=== PATIENT | female | born 1985 | race Caucasian/White ===

== ENCOUNTER → 2017-10-08 | Outpatient (CLI) | payer OTHER ==
[~2017-10-08] MED LIST: PRENCAP6 PO; PRENTAB50 PO; Z.0.NO CURRENT MEDS
== END ==
LOC: CLAB 08:44
PROVIDERS: ATTEND Obstetrics & Gynecology
DX: Z34.82 Encounter for supervision of other normal pregnancy, second trimester (principal)
CPT/HCPCS: 82951

== ENCOUNTER 2018-01-02 10:02 | Inpatient (IN) | payer OTHER ==
[2018-01-02] VITALS (17 sets, daily range): BP systolic 91–132; BP diastolic 57–75; PULSE 51–88; RESP 14–22; TEMP 97.5–98.4; O2SAT 96–100
[2018-01-02 11:11] LABS: AUTOMATED NEUTROPHIL # 3.1 TH/MM3 (1.8-7.7); BASOPHIL % 0.4 % (0.0-2.0); EOSINOPHIL % 0.2 % (0.0-4.0); HEMATOCRIT 31.1 % (35.0-46.0); HEMOGLOBIN 10.7 GM/DL (11.6-15.3); LYMPH % 28.7 % (9.0-44.0); LYMPHOCYTE # 1.4 TH/MM3 (1.0-4.8); MEAN CELL VOLUME 90.3 FL (80.0-100.0); MEAN CORPUSCULAR HGB CONC 34.3 % (32.0-36.0); MEAN PLATELET VOLUME 9.7 FL (7.0-11.0); MONO % 6.6 % (0.0-8.0); MONOCYTE # 0.3 TH/MM3 (0-0.9); NEUT % 64.1 % (16.0-70.0); PLATELET COUNT 214 TH/MM3 (150-450); RED BLOOD COUNT 3.45 MIL/MM3 (4.00-5.30); WHITE BLOOD COUNT 4.8 TH/MM3 (4.0-11.0)
[2018-01-02 11:14] LABS: BACTERIA, URINE RARE /hpf; BILIRUBIN, URINE NEG (NEG); BLOOD, URINE NEG (NEG); GLUCOSE,URINE NEG (NEG); KETONE, URINE NEG (NEG); NITRITE,URINE NEG (NEG); SQUAMOUS EPITHELIAL CELL URINE 19 /hpf (0-5); URINE COLOR YELLOW (YELLW/STRAW); URINE LEUKOCYTE ESTERASE NEG (NEG)
[2018-01-02] MEDS ORDERED: OXYTOCIN 10 UNIT/ML AMP IV ONE (12:00)
[2018-01-02] MEDS ORDERED: ONDANSETRON HCL 4 MG/2 ML VIAL IV ONE (12:00)
[2018-01-02] MEDS ORDERED: ePHEDrine/NS 25 MG/5 ML SYRINGE IV ONE (12:00)
[2018-01-02] MEDS ORDERED: DEXAMETHASONE SOD PHOS 4 MG/ML VIAL IV ONE (12:00)
[2018-01-02] MEDS ORDERED: ceFAZolin 2 GM PREMIX 50 ML IV SCH (12:00)
[2018-01-02] MEDS ORDERED: ceFAZolin INJ 1,000 MG VIAL IV ONE (12:00)
[2018-01-02] MEDS ORDERED: CITRIC ACID-SODIUM CITRATE LIQ 30 ML UDC PO SCH (12:00)
[2018-01-02] MEDS ORDERED: LACTATED RINGER'S 1000 ML INJ 1,000 ML IV ONE (12:00)
[2018-01-02] MEDS ORDERED: PHENYLEPH/NS 1000 MCG/10 ML SYR IV ONE (12:00)
[2018-01-02] MEDS ORDERED: LACTATED RINGER'S 1000 ML IV ONE (12:00)
[2018-01-02] MEDS ORDERED: ACETAMINOPHEN 1000 MG/100 ML 100 ML IV ONE (12:06)
[2018-01-02] MEDS ORDERED: MORPHINE SULFATE PF 5 MG/10 ML VIAL ONE (12:06)
[2018-01-02] MEDS ORDERED: ONDANSETRON HCL 4 MG/2 ML VIAL IV PUSH PRN (13:30)
[2018-01-02] MEDS ORDERED: OXYTOCIN 30 UNITS-500ML PREMIX 500 ML IV ONE (13:30)
[2018-01-02] MEDS ORDERED: KETOROLAC TROMETHAMINE 60 MG/2 ML (IM) VIAL IM PRN (13:30)
[2018-01-02] MEDS ORDERED: SODIUM CHLORIDE 0.9% FLUSH 10 ML FLUSH IV FLUSH PRN (13:30)
[2018-01-02] MEDS ORDERED: SIMETHICONE 80 MG CHEWABLE TAB PO PRN (13:30)
[2018-01-02] MEDS ORDERED: oxyCODONE/ACETAMINOPHEN 5 MG/325 MG TAB PO PRN (13:30)
[2018-01-02] MEDS: LACTATED RINGER'S 1000 ML INJ 1,000 ML IV SCH ×2 (18:20→22:00)
[2018-01-02] MEDS: SODIUM CHLORIDE 0.9% FLUSH 10 ML FLUSH IV FLUSH SCH (21:00)
[2018-01-02] MEDS ORDERED: OXYTOCIN 30 UNITS-500ML PREMIX 500 ML IV PRN (23:30)
[2018-01-03] VITALS: BP 94/69; PULSE 70; TEMP 97.8; O2SAT 96
[2018-01-03] MEDS ORDERED: AMMONIA AROMATIC INHALANT 0.33 ML ONE (01:55)
[2018-01-03 04:00] VITALS: BP 116/72; PULSE 58; RESP 16; TEMP 97.9; O2SAT 97
[2018-01-03] MEDS: IBUPROFEN 600 MG TAB PO PRN ×3 (05:23→18:00)
[2018-01-03 05:58] LABS: AUTOMATED NEUTROPHIL # 7.3 TH/MM3 (1.8-7.7); BASOPHIL % 0.2 % (0.0-2.0); HEMATOCRIT 29.3 % (35.0-46.0); HEMOGLOBIN 10.2 GM/DL (11.6-15.3); LYMPH % 14.4 % (9.0-44.0); LYMPHOCYTE # 1.3 TH/MM3 (1.0-4.8); MEAN CELL VOLUME 91.5 FL (80.0-100.0); MEAN CORPUSCULAR HEMOGLOBIN 31.8 PG (27.0-34.0); MEAN CORPUSCULAR HGB CONC 34.7 % (32.0-36.0); MONO % 5.9 % (0.0-8.0); MONOCYTE # 0.5 TH/MM3 (0-0.9); NEUT % 79.5 % (16.0-70.0); PLATELET COUNT 166 TH/MM3 (150-450); RED BLOOD COUNT 3.21 MIL/MM3 (4.00-5.30); RED CELL DISTRIBUTION WIDTH 13.2 % (11.6-17.2); WHITE BLOOD COUNT 9.2 TH/MM3 (4.0-11.0)
--- NOTE | 2018-01-03 07:34 | HHI.OB ---
Subjective Post Operative Day: 1 Remarks Pt doing well, good pain control, no n/v, ambulating well Objective Vitals/I&O Vital Signs Date Time Temp Pulse Resp B/P (MAP) Pulse Ox O2 Delivery O2 Flow Rate FiO2 01/03/18 04:00 97.9 58 16 116/72 (87) 97 01/03/18 00:00 70 94/69 (77) 96 01/03/18 00:00 97.8 01/02/18 23:35 17 01/02/18 23:00 18 01/02/18 22:00 18 01/02/18 21:00 97.5 70 18 96 01/02/18 21:00 91/69 (76) 01/02/18 20:00 18 01/02/18 18:28 18 01/02/18 17:08 17 01/02/18 16:00 18 01/02/18 16:00 98.4 56 16 119/72 (88) 01/02/18 15:00 55 132/70 (90) 01/02/18 15:00 17 100 01/02/18 14:45 51 128/75 (92) 01/02/18 14:45 14 100 01/02/18 14:30 54 17 127/72 (90) 100 01/02/18 14:15 73 16 110/58 (75) 100 01/02/18 14:00 78 18 108/57 (74) 100 01/02/18 13:45 131/63 (85) 01/02/18 13:45 77 17 100 01/02/18 13:30 97.6 100 01/02/18 13:30 78 22 118/69 (85) 01/02/18 10:25 84 01/02/18 10:20 81 01/02/18 10:20 98.1 88 20 98/66 (77) Result Diagram: 01/03/18 0448 Objective Remarks GENERAL: Well-nourished, well-developed patient. CARDIOVASCULAR: Regular rate and rhythm without murmurs, gallops, or rubs. RESPIRATORY: Breath sounds equal bilaterally. No accessory muscle use. ABDOMEN/GI: Abdomen soft, non-tender, bowel sounds present. Incision: Clean, dry and intact. Fundus: Firm, non-tender at umbilicus. GENITOURINARY: Light to moderate bleeding. EXTREMITIES: No cyanosis or edema, non-tender, without signs of DVT. Medications and IVs Current Medications Medications (Trade) Dose Ordered Sig/Alexsander Route Start Time Stop Time Status Last Admin Lactated Ringer's 1,000 ml @ 150 mls/hr Q6H40M IV 01/02/18 12:30 (Bicitra Liq) 30 ml SUBSCRIPTION AGENT PO 01/02/18 12:00 01/05/18 11:59 Cefazolin Sodium/ Dextrose 50 ml @ 100 mls/hr SUBSCRIPTION AGENT IV 01/02/18 12:00 01/05/18 11:59 Lactated Ringer's 1,000 ml @ 100 mls/hr Q10H IV 01/02/18 18:20 01/03/18 14:19 01/02/18 22:00 Oxytocin 500 ml @ 100 mls/hr UNSCH X1 PRN IV 01/02/18 23:30 01/03/18 23:29 (NS Flush) 2 ml BID IV FLUSH 01/02/18 21:00 (NS Flush) 2 ml UNSCH PRN IV FLUSH 01/02/18 13:30 (Mylicon Chew) 80 mg QID PRN PO 01/02/18 13:30 (Motrin) 600 mg Q6H PRN PO 01/02/18 13:30 01/03/18 05:23 (Toradol Inj) 30 mg Q6H PRN IM 01/02/18 13:30 01/03/18 13:29 (Percocet 5-325 Mg) 1 tab Q4H PRN PO 01/02/18 13:30 (Percocet 5-325 Mg) 2 tab Q4H PRN PO 01/02/18 13:30 (M-M-R Ii Inj) 0.5 ml ONCE ONCE SQ 01/03/18 16:00 01/03/18 16:01 (Boostrix Inj) 0.5 ml ONCE ONCE IM 01/03/18 16:00 01/03/18 16:01 01/02/18 19:18 (Zofran Inj) 4 mg Q6H PRN IV PUSH 01/02/18 13:30 Assessment/Plan Assessment and Plan POD # 1 s/p repeat c/s , doing well routine care Lisbeth Nuñez MD Jan 03, 2018 07:33
[2018-01-03] MEDS: oxyCODONE/ACETAMINOPHEN 5 MG/325 MG TAB PO PRN ×2 (11:52→18:00)
[2018-01-03 12:00] VITALS: BP 101/67; PULSE 80; RESP 18; TEMP 98.2; O2SAT 98
[2018-01-03 16:00] VITALS: BP 120/77; PULSE 84; RESP 18; TEMP 98.1; O2SAT 98
[2018-01-03] MEDS ORDERED: DIPHTH/TETANUS/ACEL PERTUSSIS (BOOSTER) 0.5 ML VIAL/PFS IM ONE (16:00)
[2018-01-03] MEDS ORDERED: MEASLES, MUMPS, RUBELLA VACCINE 0.5 ML VIAL SQ ONE (16:00)
[2018-01-03 19:57] VITALS: BP 93/53; PULSE 58; RESP 16; TEMP 98; O2SAT 98
[2018-01-04] MEDS: IBUPROFEN 600 MG TAB PO PRN ×5 (00:04→23:36)
[2018-01-04] MEDS: oxyCODONE/ACETAMINOPHEN 5 MG/325 MG TAB PO PRN ×5 (00:04→23:36)
[2018-01-04 08:00] VITALS: BP 121/75; PULSE 73; RESP 18; TEMP 97.8; O2SAT 95
[2018-01-04] MEDS: SODIUM CHLORIDE 0.9% FLUSH 10 ML FLUSH IV FLUSH SCH (09:00)
--- NOTE | 2018-01-04 11:07 | HHI.OB ---
Subjective Post Operative Day: 2 Remarks POD # 2 s/p repeat c/s doing well, routine care Objective Vitals/I&O Vital Signs Date Time Temp Pulse Resp B/P (MAP) Pulse Ox O2 Delivery O2 Flow Rate FiO2 01/04/18 08:00 73 121/75 (90) 01/04/18 08:00 97.8 18 95 01/03/18 19:57 98.0 58 16 93/53 (66) 98 01/03/18 16:00 98.1 84 18 120/77 (91) 98 01/03/18 12:00 80 101/67 (78) 01/03/18 12:00 98.2 18 98 Result Diagram: 01/03/18 0448 Objective Remarks GENERAL: Well-nourished, well-developed patient. CARDIOVASCULAR: Regular rate and rhythm without murmurs, gallops, or rubs. RESPIRATORY: Breath sounds equal bilaterally. No accessory muscle use. ABDOMEN/GI: Abdomen soft, non-tender, bowel sounds present. Incision: Clean, dry and intact. Fundus: Firm, non-tender at umbilicus. GENITOURINARY: Light to moderate bleeding. EXTREMITIES: No cyanosis or edema, non-tender, without signs of DVT. Medications and IVs Current Medications Medications (Trade) Dose Ordered Sig/Alexsander Route Start Time Stop Time Status Last Admin Lactated Ringer's 1,000 ml @ 150 mls/hr Q6H40M IV 01/02/18 12:30 (Bicitra Liq) 30 ml OIL RAG WASHER PO 01/02/18 12:00 01/05/18 11:59 Cefazolin Sodium/ Dextrose 50 ml @ 100 mls/hr OIL RAG WASHER IV 01/02/18 12:00 01/05/18 11:59 (NS Flush) 2 ml BID IV FLUSH 01/02/18 21:00 (NS Flush) 2 ml UNSCH PRN IV FLUSH 01/02/18 13:30 (Mylicon Chew) 80 mg QID PRN PO 01/02/18 13:30 (Motrin) 600 mg Q6H PRN PO 01/02/18 13:30 01/04/18 06:03 (Percocet 5-325 Mg) 1 tab Q4H PRN PO 01/02/18 13:30 01/04/18 06:03 (Percocet 5-325 Mg) 2 tab Q4H PRN PO 01/02/18 13:30 (Zofran Inj) 4 mg Q6H PRN IV PUSH 01/02/18 13:30 Assessment/Plan Assessment and Plan POD # 1 s/p repeat c/s , doing well routine care Discharge Planning plan for dc Lisbeth Sidhu MD Jan 04, 2018 11:06
[2018-01-04] MEDS: LACTATED RINGER'S 1000 ML IV SCH (11:10)
[2018-01-04] MEDS ORDERED: DOCUSATE SODIUM 50 MG/SENNA 8.6 MG TAB PO PRN (12:15)
[2018-01-04 19:10] VITALS: BP 140/76
[2018-01-04 19:13] VITALS: PULSE 80; RESP 17; TEMP 98; O2SAT 98
[2018-01-04 19:50] VITALS: BP 140/76
[2018-01-05] MEDS: IBUPROFEN 600 MG TAB PO PRN ×2 (04:49→10:51)
[2018-01-05] MEDS: oxyCODONE/ACETAMINOPHEN 5 MG/325 MG TAB PO PRN ×2 (04:50→10:51)
[2018-01-05] MEDS: LACTATED RINGER'S 1000 ML IV SCH (07:10)
[2018-01-05] MEDS: SODIUM CHLORIDE 0.9% FLUSH 10 ML FLUSH IV FLUSH SCH (09:00)
[2018-01-05] MEDS ORDERED: OXYC1TAB63 PO (09:41)
--- NOTE | 2018-01-05 09:42 | HHI.DCPOC ---
Discharge Care Plan Your Health Problems Are: delivery Report Symptoms to Your Doctor -Temperature above 100.5 degrees -Redness, of incision or excessive or foul smelling drainage -Unusual pain or calf pain -Increased vaginal bleeding -Painful or difficulty urinating -Feelings of extreme sadness or anxiety after 2 weeks Goals to Promote Your Health * To prevent worsening of your condition and complications * To maintain your health at the optimal level Directions to Meet Your Goals Take your medications as prescribed Follow your dietary instruction Follow activity as directed Ensure plenty of rest for recovery Drink fluids for hydration Keep your appointments as scheduled Take your immunizations and boosters as scheduled If your symptoms worsen call your PCP, if no PCP go to Urgent Care Center or Emergency Room Smoking is Dangerous to Your Health. Avoid second hand smoke Call the 24-hour crisis hotline for domestic abuse at Lisbeth Nuñez MD Jan 05, 2018 09:42
--- NOTE | 2018-01-05 09:45 | HHI.DS ---
Admission Date Jan 02, 2018 at 10:02 Admitting Diagnosis Diagnosis: : Repeat : Female, Single Pt Condition on Discharge: Good Discharge Disposition: Discharge Home Discharge Instructions Diet Instructions: As Tolerated, No Restrictions Activities You Can Perform: Pelvic Rest Lisbeth Nuñez MD Jan 05, 2018 09:45
--- NOTE | 2018-01-05 10:37 | MP ---
cc: XIAO DURHAM M.D. DATE OF SURGERY: 01/02/2018. PREOPERATIVE DIAGNOSIS: Intrauterine at 39 weeks gestation with previous section. POSTOPERATIVE DIAGNOSIS: Intrauterine at 39 weeks gestation with previous section. OPERATIVE PROCEDURE PERFORMED: Repeat low transverse section. OPERATING SURGEON: Xiao Durham MD. ANESTHESIA: Spinal. FINDINGS IN SURGERY: Findings in surgery included a viable female weighing 7 pounds 8 ounces with Apgars of 8 and 8 and normal-appearing tubes and ovaries bilaterally. ESTIMATED BLOOD LOSS: 800 cc. COMPLICATIONS: None. DESCRIPTION OF THE PROCEDURE IN DETAIL: After proper consents were obtained and blood had been typed and screened, the patient was taken to the operating room where spinal anesthetic was placed. She was then placed in dorsal position, sterilely prepped and draped and a Sow catheter was placed. At this time, a revision of the prior Pfannenstiel skin incision was performed using a sharp knife. This was carried down to the fascia using Bovie cautery. Fascia was nicked in the midline and extended superolaterally on each side. We had sharp and blunt dissection of the muscles off of the fascia. Peritoneum was identified, entered sharply with Metzenbaum scissors. There was some scarring of the omentum to the lower uterine segment which I took down with the Bovie cautery. There were also some adhesions of the bladder to the lower segment which I took down sharply. I then placed the bladder blade and developed the bladder flap, replaced the blade and made a transverse incision in the lower uterine segment. This was extended using the finger fracture technique. Rupture of membranes revealed clear fluid. I attempted a vacuum delivery of the vertex which was unsuccessful three times. I then went ahead and used the bandage scissors to cut the abdominal muscles which I had to do in the prior . Once I did that, I was able to deliver the vertex, bulb suction to the oropharynx and the nares and a controlled delivery of the body followed. Cord was clamped x2 after 40 seconds and the was handed to the team in attendance, a viable female 7 pounds 8 ounces with Apgars of 8 and 8. At this time, cord blood sample was obtained. Placenta was removed. The uterus was exteriorized, wiped clean of clots and debris. The uterine incision was closed with a #1 chromic suture starting at each apex and meeting in the midline in a running interlocking fashion with excellent hemostasis noted. Irrigation was performed to the abdominopelvic cavity. We placed the uterus back into the cavity. Hemostasis was assured. We reapproximated the muscles using interrupted sutures of the 1-0 chromic. I then closed the fascia using a 0 Vicryl starting at each apex and meeting in the midline in a running fashion. Irrigation was performed to the subcu. Hemostasis with Bovie cautery. The space was closed with interrupted sutures of 3-0 Vicryl. We then closed the skin using madisyn. All counts were correct and the patient was stable to the recovery room. MD SHWETHA Scott/JCC /4:50 PM /10:25 AM
== END 2018-01-05 11:04 | disposition home or self-care (01) | DRG 766 ==
LOC: H2EB 10:02 → H1EA 15:30
PROVIDERS: ADMIT Obstetrics & Gynecology; ATTEND Obstetrics & Gynecology
PROC: 10D00Z1 Extraction of Products of Conception, Low, Open Approach (ICD-10-PCS; principal; 2018-01-02)
DX: O34.211 Maternal care for low transverse scar from previous cesarean delivery (principal); Z37.0 Single live birth; Z3A.39 39 weeks gestation of pregnancy
CPT/HCPCS: 59025; 80307; 81001; 85025; 86850; 86900; 86901; 90715; J0131; J0690; J1100; J2274; J2370; J2405; J2590; J3010; J7120